=== PATIENT | male | born 2000 | race Hispanic/Latino ===

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

== ENCOUNTER 2021-01-16 17:44 | Emergency (ER) | payer OTHER ==
[2021-01-17 00:09] LABS: SARS-CoV-2 PCR by NAA Not Detected (NotDetected)
== END 2021-01-16 18:35 | disposition home or self-care (01) ==
LOC: ERS 17:44
DX: B34.9 Viral infection, unspecified (principal); Z20.822 Contact with and (suspected) exposure to COVID-19
CPT/HCPCS: 87635; 99283; U0003; U0005